=== PATIENT | female | born 1965 | race Caucasian/White ===

== ENCOUNTER 2017-03-28 12:32 | Emergency (ER) | payer OTHER ==
[~2017-03-28] VITALS: Ht 157.5 cm; Wt 92.4 kg
[2017-03-28 12:36] VITALS: Ht 157.5 cm; Wt 92.4 kg
[2017-03-28] MEDS ORDERED: KETOROLAC 60 MG INJ IM STA (13:41)
[2017-03-28] MEDS ORDERED: DIAZEPAM 2 MG TAB PO ONE (14:00)
[2017-03-28 14:26] LABS: URINE BLOOD (Dip) POC Negative (NEGATIVE)
--- NOTE | 2017-03-28 14:59 | RADRPT ---
PROCEDURE: Lumbar spine radiographs CLINICAL INDICATION: Low back pain. COMPARISON: None relevant listed. TECHNIQUE: AP, lateral, and coned-down L5-S1 views. FINDINGS: There are 5 non-rib bearing lumbar vertebral bodies. Bilateral L5 pars interarticularis defects. 14 mm anterolisthesis of L5 on S1. Moderate proliferative changes about L5-S1 facet joints. Moderate L5-S1 disc height loss. IMPRESSION: Grade 2 L5-S1 spondylolisthesis. RPTAT: PP Physician Angus Date Time Electronically viewed and signed by Physician Angus on 03/28/2017 14:59 LG/
[2017-03-28] MEDS ORDERED: HYDR-906 PO (15:04)
[2017-03-28] MEDS ORDERED: ORPH100T PO (15:05)
--- NOTE | 2017-03-28 15:16 | ERD ---
ER Documentation Chief Complaint Chief Complaint RIGHT SIDE BACK PAIN RADIATING DOWN LEG SINCE WEDNESDAY AFTERNOON HPI This is a 52-year-old female that presents to the ER with right-sided back pain that started on Wednesday. Patient was coming back from work when she felt a sharp pain in the right side of her back. Pain radiates down the right side of her leg. Pain is described as severe and constant. It is worse whenever she sits down or lays down. Patient denies any urinary frequency or dysuria. She denies any hematuria. She denies any nausea vomiting or diarrhea. She does not have any fevers or chills. She denies any trauma to the back. She denies any urinary bowel incontinence. She denies any saddle like anesthesia. ROS 12 point review of systems was done, all negative except per HPI. Medications Home Meds Active Scripts Orphenadrine Citrate (Norflex) 100 Mg Tablet.sa, 100 MG PO BID for 3 Days, TAB.SA Prov:MARIANELA,VAN C 03/28/17 Hydrocodone/Acetaminophen ([place] 5-325 Tablet) 1 Each Tablet, 1 TAB PO Q6H Y for PAIN, #15 TAB Prov:MARIANELAVAN C 03/28/17 Allergies Allergies: Coded Allergies: No Known Allergy (Unverified , 03/28/17) PMhx/Soc Medical and Surgical Hx: pt denies Medical Hx, pt denies Surgical Hx Hx Alcohol Use: No Hx Substance Use: No Hx Tobacco Use: No Smoking Status: Never smoker Physical Exam Vitals Vital Signs Date Time Temp Pulse Resp B/P Pulse Ox O2 Delivery O2 Flow Rate FiO2 03/28/17 12:36 98.2 75 18 161/76 98 Physical Exam GENERAL: The patient is well developed and appropriate for usual state of health , in no apparent distress. NECK: C-spine is soft and supple. There is no cervical lymphadenopathy. CHEST: Clear to auscultation bilaterally. There are no rales, wheezes or rhonchi. HEART: Regular rate and rhythm. No murmurs, clicks, rubs or gallops. ABDOMEN: Soft, nontender and nondistended. Good bowel sounds. No rebound or guarding. No gross peritonitis. No gross organomegaly or masses. No Joshua sign or McBurney point tenderness. No pulsatile abdominal mass. BACK: No midline or flank tenderness. No vertebral point tenderness along the lumbar thoracic spine. Tense paraspinal muscles. Negative leg raise test. No step- offs. EXTREMITIES: Equal pulses bilaterally. There is no peripheral clubbing, cyanosis or edema. No focal swelling or erythema. Full range of motion. Grossly neurovascularly intact. NEURO: Alert and oriented. Cranial nerves II through XII are intact. Motor strength in all 4 extremities with 5/5 strength. Sensation grossly intact. Normal speech and gait. SKIN: There is no apparent rash or petechia. The skin is warm and dry. Results 24 hrs Laboratory Tests Test 03/28/17 14:27 Bedside Urine pH (LAB) 7.0 Bedside Urine Protein (LAB) Negative Bedside Urine Glucose (UA) Negative Bedside Urine Ketones (LAB) Negative Bedside Urine Blood Negative Bedside Urine Nitrite (LAB) Negative Bedside Urine Leukocyte Esterase (L Negative Current Medications Medications (Trade) Dose Ordered Sig/Irving Route PRN Reason Start Time Stop Time Status Last Admin Dose Admin Ketorolac Tromethamine (Toradol) 60 mg ONCE STAT IM 03/28/17 13:41 03/28/17 13:44 DC 03/28/17 14:24 Diazepam (Valium) 2 mg ONCE ONCE PO 03/28/17 14:00 03/28/17 14:01 DC 03/28/17 14:40 [place] [id number] Radiology Main Line: [phone] DIAGNOSTIC IMAGING REPORT Patient: JENNIFER ARTHUR : 1965 Age: 52 Sex: F MR #: [id number] DOS: 03/28/17 0000 Ordering MD: VAN BEAR PA-C Location: E Room/Bed: PROCEDURE: Lumbar spine radiographs CLINICAL INDICATION: Low back pain. COMPARISON: None relevant listed. TECHNIQUE: AP, lateral, and coned-down L5-S1 views. FINDINGS: There are 5 non-rib bearing lumbar vertebral bodies. Bilateral L5 pars interarticularis defects. 14 mm anterolisthesis of L5 on S1. Moderate proliferative changes about L5-S1 facet joints. Moderate L5-S1 disc height loss. IMPRESSION: Grade 2 L5-S1 spondylolisthesis. RPTAT: PP Physician Angus Date Time Electronically viewed and signed by Ashlyn Donis Physician on 03/28/2017 14: 59 LG/ CC: VAN BEAR Procedures/MDM Differential Diagnosis includes but is not limited to back strain, vertebral fracture, epidural abscess, cauda equina, herniated disc, AAA rupture, kidney stones, UTI, pyelonephritis. Is a 52-year-old female presents to the ER with back pain. Patient does have spondylolisthesis, may be causing problems with her sciatic nerve and also lower back pain. Patient is able to ambulate in the ER and is neurovascularly intact. She is afebrile and well-appearing. Patient for cauda equina or epidural abscess is low. She will be sent home with [place] with Norflex. She is to follow-up with her primary care doctor within 1-2 days or return to ER sooner if symptoms worsen. My medical decision making shared with the patient she understands and agrees with plan Departure Diagnosis: Primary Impression: Back pain Condition: Stable Patient Instructions: Back Pain (Acute Or Chronic) Additional Instructions: Call your primary care doctor TOMORROW for an appointment during the next 1-2 days.See the doctor sooner or return here if your condition worsens before your appointment time. VAN BEAR Mar 28, 2017 15:16
== END 2017-03-28 15:34 | disposition home or self-care (01) ==
LOC: FTE 12:32
DX: M54.9 Dorsalgia, unspecified (principal)
CPT/HCPCS: 72100; 81003; 96372; J1885; Z7502; Z7610